=== PATIENT | female | born 1995 | race African-American/Black ===

== ENCOUNTER 2017-03-04 14:26 | Observation (INO) | payer OTHER ==
[2015-05-24 14:55] VITALS: BP 188/90
== END 2017-03-04 15:50 | disposition home or self-care (01) ==
LOC: 3 SO LND 14:26
PROVIDERS: ADMIT Specialist; ATTEND Specialist
DX: O62.9 Abnormality of forces of labor, unspecified (principal); Z3A.27 27 weeks gestation of pregnancy
CPT/HCPCS: G0378; G0379

== ENCOUNTER 2017-03-04 15:55 | Emergency (ER) | payer OTHER ==
[~2017-03-04] VITALS: Ht 152.4 cm; Wt 164.7 kg
[2017-03-04 16:10] VITALS: BP 135/62
--- NOTE | 2017-03-04 16:38 | PHYS DOC ---
Past Medical History Past Medical History: No Pertinent History Past Surgical History: Alcohol Use: None Drug Use: None Adult General Chief Complaint Chief Complaint: SORE THROAT HPI HPI Patient is a 22 year old female with no significant medical history currently 27 weeks 2 para 1 who presents with sore throat and nasal congestion since yesterday. Patient denies any fever. She states she had back pain, she states she stopped on the OB floor, she states they checked on the baby and did a urine analysis, she states she was informed she is dehydrated and was requested to push fluids. She checked in to the ED to be seen for sore throat and nasal congestion. Patient is also complaining of nasal congestion. Review of Systems Review of Systems Constitutional: See history of present illness Eyes: Denies change in visual acuity, redness, or eye pain [] HENT: nasal congestion and sore throat [] Respiratory: Denies cough or shortness of breath [] Cardiovascular: No additional information not addressed in HPI [] GI: Denies abdominal pain, nausea, vomiting, bloody stools or diarrhea [] : Denies dysuria or hematuria [] Musculoskeletal: Denies back pain or joint pain [] Integument: Denies rash or skin lesions [] Neurologic: Denies headache, focal weakness or sensory changes [] Endocrine: Denies polyuria or polydipsia [] Allergies Allergies Allergies Coded Allergies Type Severity Reaction Last Updated Verified No Known Drug Allergies 11/02/14 No Physical Exam Physical Exam Constitutional: Well developed, well nourished, no acute distress, non-toxic appearance. [] HENT: Normocephalic, atraumatic, bilateral external ears normal, oropharynx moist, no oral exudates, nose normal. [] Eyes: PERRLA, EOMI, conjunctiva normal, no discharge. [] Neck: Normal range of motion, no tenderness, supple, no stridor. [] Cardiovascular:Heart rate regular rhythm, no murmur [] Lungs & Thorax: Bilateral breath sounds clear to auscultation [] Abdomen: Gravid abdomen. Bowel sounds normal, soft, no tenderness, no masses, no pulsatile masses. [] Skin: Warm, dry, no erythema, no rash. [] Back: No tenderness, no CVA tenderness. [] Extremities: No tenderness, no cyanosis, no clubbing, ROM intact, no edema. [] Neurologic: Alert and oriented X 3, normal motor function, normal sensory function, no focal deficits noted. [] Psychologic: Affect normal, judgement normal, mood normal. [] Current Patient Data Vital Signs Vital Signs Date Time Temp Pulse Resp B/P (MAP) Pulse Ox O2 Delivery O2 Flow Rate FiO2 03/04/17 16:10 97.8 102 20 99 Room Air 97.8 EKG EKG [] Radiology/Procedures Radiology/Procedures [] Course & Med Decision Making Course & Med Decision Making Pertinent Labs and Imaging studies reviewed. (See chart for details) This is a 22-year-old female patient currently 27 weeks 2 para 1 presenting to the ED with a sore throat and nasal congestion since yesterday. She did have back pain and stopped on the OB floor where they checked on the baby. She also had a urine analysis. She states she was informed she is dehydrated and she was asked to push fluids. Negative rapid strep, symptoms are probably viral. Saltwater gargles recommended , Tylenol recommended for pain. Follow-up with OB and primary care doctor next week. Dragon Disclaimer Dragon Disclaimer This electronic medical record was generated, in whole or in part, using a voice recognition dictation system. Departure Departure Impression: Primary Impression: Upper respiratory infection Additional Impressions: Acute viral pharyngitis Disposition: 01 HOME, SELF-CARE Condition: STABLE Referrals: NO PCP (PCP) follow up with your primary care doctor and [facility] next week Patient Instructions: ABCs of , Upper Respiratory Infection, Adult, Viral Pharyngitis Additional Instructions: You were seen for viral pharyngitis/sore throat and an upper respiratory infection. Take Tylenol as needed for pain, use saltwater gargles, continue pushing fluids. Follow-up with your own primary care doctor and [facility] next week. Return to the ED at any point symptoms worsen. Problem Qualifiers Primary Impression: Upper respiratory infection URI type: unspecified URI Qualified Codes: J06.9 - Acute upper respiratory infection, unspecified Additional Impressions: Weeks of gestation: 27 weeks Qualified Codes: Z3A.27 - 27 weeks gestation of SANTIAGO GLORIA APRN Mar 04, 2017 16:38
[2017-03-05 07:57] LABS: NEGATIVE OBC STREP NEG; POSITIVE OBC STREP POS
--- NOTE | 2017-03-08 09:03 | VNOTE ---
CALL BACK NOTE CALL BACK Microbiology 03/04/17 Throat Culture - Final, Complete 03/04/17 - Final, Complete Attempted to contact patient at [phone] in regards to positive strep test. No answer, message was left for patient to call back during 7am- 1 am for lab results. STEPHIE HICKS APRN Mar 08, 2017 09:03
== END 2017-03-04 16:55 | disposition home or self-care (01) ==
LOC: ER 15:55
DX: O99.512 Diseases of the respiratory system complicating pregnancy, second trimester (principal); J06.9 Acute upper respiratory infection, unspecified; J02.8 Acute pharyngitis due to other specified organisms; B97.89 Other viral agents as the cause of diseases classified elsewhere; Z3A.27 27 weeks gestation of pregnancy
CPT/HCPCS: 87070; 87880; 99284